=== PATIENT | female | born 1970 | race Caucasian/White ===

== ENCOUNTER 2019-03-19 23:28 | Emergency (ER) | payer OTHER ==
[~2019-03-19] VITALS: Ht 165 cm; Wt 83.6 kg
[2019-03-20] MEDS ORDERED: RT-ALBUTEROL/IPRATROPIUM 3 ML (DUONEB) VIAL INH ONE
[2019-03-20] MEDS ORDERED: RT-ALBUINH IH (00:28)
[2019-03-20] MEDS ORDERED: PRD20T PO (00:28)
--- NOTE | 2019-03-20 00:28 | ED General ---
General Chief Complaint: Cough/Cold/Flu Symptoms Stated Complaint: SOB Nursing Triage Note: PT AMBULATES TO ROOM 5, STATES SHE WAS SEEN ON FOR ABHIJEETTIS BY HER PCP AND CAME INTO THE STATE TO VISIT FAMILY, REPORTS SHE HAS NOT IMPROVED IN SYMPTOMS OF NON PRODUCTIVE COUGH AND EXERTIONAL SOB. Nursing Sepsis Screen: No Definite Risk Source of Information: Patient Exam Limitations: No Limitations History of Present Illness Date Seen by Provider: Mar 19, 2019 Time Seen by Provider: 23:45 Initial Comments This 48 year old woman presents to the emergency room with complaints of wheezing and shortness of breath. She was recently treated for bronchitis with Augmentin and Phenergan with codeine. Symptoms persist. She does smoke. She does not have an inhaler at present. She is afebrile. She is presently in town visiting and does not have a PCP here. Allergies and Home Medications Allergies Coded Allergies: morphine (Verified Allergy, Unknown, 03/19/19) Home Medications Albuterol Sulfate 1 Puff Puff, 2-4 PUFF IH Q4H PRN for SHORTNESS OF BREATH 1 PUFF = 90 MCG Prescribed by: VERÓNICA NICHOLS on 03/20/19 0028 Prednisone 20 Mg Tab, 1 TAB PO DAILY Prescribed by: VERÓNICA NICHOLS on 03/20/19 0028 Patient Home Medication List Home Medication List Reviewed: Yes Review of Systems Review of Systems Constitutional: no symptoms reported EENTM: no symptoms reported Respiratory: see HPI Cardiovascular: no symptoms reported Gastrointestinal: no symptoms reported Genitourinary: no symptoms reported Musculoskeletal: no symptoms reported Skin: no symptoms reported Psychiatric/Neurological: No Symptoms Reported Hematologic/Lymphatic: No Symptoms Reported Immunological/Allergic: no symptoms reported Past Rzzsmvo-Xvzjrg-Wxsqos Hx Past Med/Social Hx: Reviewed Nursing Past Med/Soc Hx Patient Social History Alcohol Use: Denies Use Recreational Drug Use: No Smoking Status: Current Everyday Smoker Type Used: Cigarettes Recent Foreign Travel: No Contact w/Someone Who Travel: No Recent Infectious Disease Expo: No Recent Hopitalizations: No Physical Abuse: No Sexual Abuse: No Mistreated: No Fear: No Immunizations Up To Date Tetanus Booster (TDap): Less than 5yrs PED Vaccines UTD: Yes Past Medical History Surgeries: Yes (HIP REPLACEMENT X3 ) Neurological, Orthopedic, Tubal Ligation Respiratory: No Cardiac: No 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 oz. 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 Norm as Tested Skin: Normal Color, Warm/Dry Progress/Results/Core Measures Suspected Sepsis Recent Fever Within 48 Hours: No Infection Criteria Present: Suspected New Infection New/Unexplained Altered Menta: No Sepsis Screen: No Definite Risk SIRS Temperature: Pulse: 87 Respiratory Rate: 20 Blood Pressure 126 /103 Mean: 111 Results/Orders My Orders Orders - VERÓNICA DAS MD Albuterol/Ipra Inhalation Soln (Duoneb I (03/20/19 00:00) Svn Small Volume Nebulizer (03/19/19 23:52) Prednisone Tablet (Deltasone Tablet) (03/20/19 00:30) Medications Given in ED Current Medications Medications Dose Ordered Sig/Yessica Route Start Time Stop Time Status Last Admin Dose Admin Albuterol/ Ipratropium 3 ml ONCE ONCE INH 03/20/19 00:00 03/20/19 00:01 DC 03/20/19 00:10 3 ML Prednisone 20 mg ONCE ONCE PO 03/20/19 00:30 03/20/19 00:31 DC 03/20/19 00:32 20 MG Vital Signs/I&O 03/19/19 03/19/19 03/20/19 03/20/19 23:41 23:45 00:08 00:37 Temp 36.4 36.4 Pulse 87 91 Resp 20 20 B/P (MAP) 126/103 (111) 116/52 (111) Pulse Ox 96 95 94 O2 Delivery Room Air Room Air Room Air Room Air Capillary Refill : Less Than 3 Seconds Blood Pressure Mean: 111 Progress Note : Progress Note She had some improvement after DuoNeb treatment. She has taken steroids before for bronchitis and tolerated them well. A dose of prednisone was given in the emergency room. Further prednisone therapy and an inhaler were prescribed. Departure Impression Primary Impression: Acute bronchitis Qualified Codes: J20.9 - Acute bronchitis, unspecified Disposition: HOME, SELF-CARE Condition: Improved Departure-Patient Inst. Decision time for Depature: 00:24 Referrals: NO,LOCAL PHYSICIAN (PCP/Family) Primary Care Physician Patient Instructions: Acute Bronchitis, Adult (DC) Add. Discharge Instructions: Use your inhaler 2-4 puffs every 4 hours as needed for wheezing and shortness of air. Complete the antibiotic previously prescribed. Complete prednisone as prescribed. You should experience gradual improvement over the next several days with prednisone use. Return to care if you have worsening symptoms. Work toward quitting smoking as rapidly as possible. Seek assistance from your primary care provider if needed. All discharge instructions reviewed with patient and/or family. Voiced understanding. Scripts Albuterol Sulfate (PROAIR HFA) 1 Puff Puff 2-4 PUFF IH Q4H PRN for SHORTNESS OF BREATH, #1 PUFF 1 PUFF = 90 MCG Prov: VERÓNICA DAS MD 03/20/19 Prednisone (Prednisone) 20 Mg Tab 1 TAB PO DAILY, #4 TAB Prov: VERÓNICA DAS MD 03/20/19 VERÓNICA DAS MD Mar 20, 2019 00:28
[2019-03-20] MEDS ORDERED: predniSONE 20 MG TAB PO ONE (00:30)
[2019-03-20 00:37] VITALS: BP 116/52
== END 2019-03-20 00:37 | disposition home or self-care (01) ==
LOC: ER 23:33
DX: J20.9 Acute bronchitis, unspecified (principal); F17.210 Nicotine dependence, cigarettes, uncomplicated; Z88.5 Allergy status to narcotic agent; Z98.51 Tubal ligation status
CPT/HCPCS: 94640; 99283